=== PATIENT | male | born 1995 | race African-American/Black ===

== ENCOUNTER 2018-08-24 08:30 | Emergency (ER) | payer OTHER ==
[~2018-08-24] VITALS: Ht 177.8 cm; Wt 70.3 kg
[2018-08-24 09:43] LABS: Alanine Aminotransferase 23 U/L (16-61); Albumin 4.2 g/dL (3.4-5.0); Anion Gap 10 (5-15); Aspartate Aminotransferase 18 U/L (15-37); Blood Urea Nitrogen 7 mg/dL (7-18); Calcium 8.6 mg/dL (8.5-10.1); Carbon Dioxide 22 mmol/L (21-32); Chloride 113 mmol/L (98-107); Glucose 95 mg/dL (74-106); Potassium 3.8 mmol/L (3.5-5.1); Sodium 145 mmol/L (136-145)
[2018-08-24 09:47] LABS: Basophils # (auto) 0 uL; Basophils % (auto) 0.8 % (0.0-2.0); Eosinophils # (auto) 0 uL; Eosinophils % (auto) 0.1 % (0.0-7.0); Hematocrit 42.9 % (41.0-53.0); Hemoglobin 14.7 g/dL (13.5-17.5); Lymphocytes # (auto) 2.8 uL; Lymphocytes % (auto) 51.8 % (10.0-50.0); Mean Corpuscular Hemoglobin 33.4 pg (28.0-32.0); Mean Corpuscular Hgb Conc. 34.3 g/dL (32.0-36.0); Mean Corpuscular Volume 97.2 fL (80.0-100.0); Monocytes # (auto) 0.4 uL; Monocytes % (auto) 7.1 % (0.0-12.0); Neutrophils # (auto) 2.2 uL; Neutrophils % (auto) 40.2 % (37.0-80.0); Nucleated Red Blood Cells % 0.1 %; Platelet Count (auto) 348 10^3/uL (140-450); Red Blood Cells 4.41 10^6/uL (4.5-5.90); Red Cell Distribution Width 13.1 % (11.8-14.3); White Blood Cell 5.4 10^3/uL (4.4-10.8)
[2018-08-24 09:48] LABS: Alkaline Phosphatase 117 U/L (45-117); BUN/Creatinine Ratio 8.5; Bilirubin, Total 0.1 mg/dL (0.2-1.0); GFR African American 147 mL/min; GFR Non-African American 122 mL/min; Total Protein 7.8 g/dL (6.4-8.2)
[2018-08-24 10:32] LABS: Urine Bacteria NONE SEEN /hpf (None Seen); Urine Blood Negative /uL (Negative); Urine Specific Gravity 1.021 (1.001-1.035); Urine WBC 1 /hpf (0 - 3)
[2018-08-24] MEDS ORDERED: IOHEXOL 350 MG/ML 100ML IJ ONE (10:49)
[2018-08-24 11:07] LABS: Barbiturate Scree,Urine NEGATIVE (NEGATIVE); Benzodiazephine Screen, Urine NEGATIVE (NEGATIVE); Cannabinoid Screen, Urine POSITIVE (NEGATIVE); Cocaine Screen, Urine NEGATIVE (NEGATIVE); Opiate Scree,Urine NEGATIVE (NEGATIVE); Phencyclidine Screen, Urine NEGATIVE (NEGATIVE)
[2018-08-24 11:14] LABS: Amphetamine Screen, Urine NEGATIVE (NEGATIVE)
[2018-08-24 11:24] VITALS: BP 131/75
[2018-08-24] MEDS ORDERED: SODIUM CHLORIDE 0.9% 1,000 ML IV ONE (11:30)
== END 2018-08-24 12:58 | disposition home or self-care (01) ==
LOC: ER 08:39
DX: Z02.89 Encounter for other administrative examinations (principal); F10.129 Alcohol abuse with intoxication, unspecified; M54.5 Low back pain; Y90.9 Presence of alcohol in blood, level not specified
CPT/HCPCS: 36415; 71275; 80053; 80307; 80320; 81001; 84484; 85025; 93005; 99284; J7030; Q9967